=== PATIENT | male | born 1960 | race Caucasian/White ===

== ENCOUNTER 2022-10-23 08:16 | Emergency (ER) | payer OTHER ==
[2022-10-23 08:32] VITALS: BP 117/72; PULSE 81; RESP 18; TEMP 97.9; BMI 24.3
[2022-10-23] MEDS ORDERED: TETANUS AND DIPHTHERIA TOXOID 0.5 ML DISP.SYRIN IM ONE (08:58)
[2022-10-23] MEDS ORDERED: TETRACAINE 0.5% OPHTH SOLN 2 ML BOTTLE OD ONE (08:58)
[2022-10-23] MEDS ORDERED: TETRACAINE 0.5% OPHTH SOLN 2 ML BOTTLE ONE (09:20)
[2022-10-23] MEDS ORDERED: DIPHTH,PERTUSS(ACELL),TET 0.5 ML DISP.SYRIN IM ONE (09:20)
[2022-10-23] MEDS ORDERED: FLUORESCEIN NA 1 EA STRIP ONE ×2 (09:22→09:39)
[2022-10-23] MEDS ORDERED: IBUPROFEN 600 MG TABLET (FP) PO ONE (09:54)
== END 2022-10-23 10:24 | disposition home or self-care (01) ==
LOC: JER 08:16 → JERFT 08:16
PROC: 3E0234Z Introduction of Serum, Toxoid and Vaccine into Muscle, Percutaneous Approach (ICD-10-PCS; principal; 2022-10-23)
DX: S05.02XA Injury of conjunctiva and corneal abrasion without foreign body, left eye, initial encounter (principal); W31.2XXA Contact with powered woodworking and forming machines, initial encounter
CPT/HCPCS: 99284-25

== ENCOUNTER 2023-11-30 08:27 | Emergency (ER) | payer OTHER, BC ==
[2023-11-30 08:39] VITALS: BP 129/72; PULSE 83; RESP 16; TEMP 98.2; BMI 24.3
[2023-11-30] MEDS ORDERED: TETRACAINE 0.5% OPHTH SOLN 2 ML BOTTLE ONE ×2 (09:16→11:29)
[2023-11-30] MEDS ORDERED: FLUORESCEIN NA 1 EA STRIP ONE (09:18)
[2023-11-30] MEDS: FLUORESCEIN NA 1 EA STRIP OU ONE (09:19)
[2023-11-30] MEDS: TETRACAINE 0.5% HCL 0.6ML DROPPER.BOTTLE OU ONE (09:19)
[2023-11-30] MEDS: TETRACAINE 0.5% HCL 0.6ML DROPPER.BOTTLE OD ONE (11:32)
== END 2023-11-30 11:37 | disposition home or self-care (01) ==
LOC: JER 08:27
DX: H10.9 Unspecified conjunctivitis (principal)
CPT/HCPCS: 99283-25